=== PATIENT | female | born 1995 | race Caucasian/White ===

== ENCOUNTER → 2022-10-08 | Outpatient (CLI) | payer OTHER, SELFPAY ==
[2022-10-10 21:07] LABS: Chlamydia By Nucleic Acid AMP Negative (Negative)
[2022-10-10 22:59] LABS: Gonococcus By Nucleic Acid AMP Negative (Negative)
== END | disposition home or self-care (01) ==
LOC: LABSPEC 15:49
PROVIDERS: PCP Family Medicine; Referring Provider Obstetrics & Gynecology; Visit Provider Obstetrics & Gynecology
DX: O09.90 Supervision of high risk pregnancy, unspecified, unspecified trimester (principal); Z3A.00 Weeks of gestation of pregnancy not specified
CPT/HCPCS: 87086; 87088; 87491; 87591

== ENCOUNTER → 2022-10-14 | Outpatient (CLI) | payer OTHER, SELFPAY ==
[2022-10-14 12:44] LABS: Absolute Lymphocyte Count 1.54 X10^3/uL (0.83-4.51); Absolute Neutrophil Count 5.4 X10^3/uL (2.0-7.7); Basophil# 0.03 X10^3/uL; Basophil% 0.4 % (0-1); Eosinophil# 0.04 X10^3/uL; Eosinophils% 0.5 % (0-5); Hematocrit 42.5 % (37-47); Hemoglobin 14.4 g/dL (12.0-15.0); Lymphocyte # 1.54 X10^3/ul (0.83-4.51); Lymphocyte % 20.6 % (19-41); Mean Corp Hgb Conc 33.9 g/dL (32-36); Mean Corpuscular Hgb 30.8 pg (27.0-32.0); Mean Corpuscular Volume 90.8 fL (81-99); Mean Platelet Vol. 10.7 fl (6.2-12.0); Monocyte# 0.41 X10^3/uL; Monocyte% 5.5 % (0-10); NRBC Flagged by Analyzer 0 % (0-5); Neutrophil # 5.43 X10^3/uL (2.7-7.7); Neutrophil % 72.6 % (47-70); Platelet Count 238 K/mm3 (150-450); RBC Distribution Width CV 11.8 % (11.6-14.6); Red Blood Count 4.68 M/mm3 (4.2-5.4); White Blood Count 7.5 K/mm3 (4.4-11.0)
[2022-10-14 13:18] LABS: NATERA MAILED SPECIMEN
[2022-10-14 14:04] LABS: HIV - WCH Non-Reactive (Nonreactive); Hepatitis B Surface Antigen Non-Reactive (Nonreactive); Hepatitis C Antibody Non-Reactive (Nonreactive); Rubella IgG Reactive (Nonreactive); Syphilis Antibodies Non-reactive
== END | disposition home or self-care (01) ==
LOC: LABSPEC 12:06
PROVIDERS: PCP Family Medicine; Referring Provider Obstetrics & Gynecology; Visit Provider Obstetrics & Gynecology
DX: Z34.81 Encounter for supervision of other normal pregnancy, first trimester (principal); Z31.430 Encounter of female for testing for genetic disease carrier status for procreative management
CPT/HCPCS: 36415; 85025; 86703; 86762; 86780; 86803; 86850; 86900; 86901; 87340

== ENCOUNTER → 2022-11-19 | Outpatient (CLI) | payer OTHER, SELFPAY | END | disposition home or self-care (01) | PROVIDERS: PCP Family Medicine; Referring Provider Registered Nurse; Visit Provider Registered Nurse | DX: Z36.9 Encounter for antenatal screening, unspecified (principal) | CPT/HCPCS: 36415 ==

== ENCOUNTER → 2023-02-05 | Outpatient (CLI) | payer OTHER, SELFPAY ==
[2023-02-05 10:52] LABS: Absolute Lymphocyte Count 1.75 X10^3/uL (0.83-4.51); Absolute Neutrophil Count 7.7 X10^3/uL (2.0-7.7); Basophil# 0.03 X10^3/uL; Basophil% 0.3 % (0-1); Eosinophil# 0.04 X10^3/uL; Eosinophils% 0.4 % (0-5); Hematocrit 37.1 % (37-47); Hemoglobin 12.5 g/dL (12.0-15.0); Lymphocyte # 1.75 X10^3/ul (0.83-4.51); Lymphocyte % 17.4 % (19-41); Mean Corp Hgb Conc 33.7 g/dL (32-36); Mean Corpuscular Hgb 31.4 pg (27.0-32.0); Mean Corpuscular Volume 93.2 fL (81-99); Mean Platelet Vol. 10.5 fl (6.2-12.0); Monocyte# 0.49 X10^3/uL; Monocyte% 4.9 % (0-10); NRBC Flagged by Analyzer 0 % (0-5); Neutrophil # 7.68 X10^3/uL (2.7-7.7); Neutrophil % 76.3 % (47-70); Platelet Count 188 K/mm3 (150-450); RBC Distribution Width CV 12.7 % (11.6-14.6); RBC Distribution Width SD 43.6 fl (35.1-43.9); Red Blood Count 3.98 M/mm3 (4.2-5.4); White Blood Count 10.1 K/mm3 (4.4-11.0)
[2023-02-05 11:02] LABS: Glucose Challenge Gest 1H 50g 128 mg/dL (70-140)
[2023-02-05 11:33] LABS: HIV - WCH Non-Reactive (Nonreactive); Syphilis Antibodies Non-reactive
== END | disposition home or self-care (01) ==
PROVIDERS: PCP Family Medicine; Referring Provider Advanced Practice Midwife; Visit Provider Advanced Practice Midwife
DX: O26.899 Other specified pregnancy related conditions, unspecified trimester (principal); R30.0 Dysuria; O09.90 Supervision of high risk pregnancy, unspecified, unspecified trimester; Z13.1 Encounter for screening for diabetes mellitus; Z3A.00 Weeks of gestation of pregnancy not specified
CPT/HCPCS: 36415; 82950; 85025; 86703; 86780; 87086

== ENCOUNTER → 2023-04-17 | Outpatient (CLI) | payer OTHER, SELFPAY | END | disposition home or self-care (01) | LOC: LABSPEC 11:18 | PROVIDERS: PCP Family Medicine; Referring Provider Advanced Practice Midwife; Visit Provider Advanced Practice Midwife | DX: Z34.90 Encounter for supervision of normal pregnancy, unspecified, unspecified trimester (principal) | CPT/HCPCS: 87081 ==

== ENCOUNTER 2023-04-30 09:40 | Inpatient (IN) | payer OTHER, SELFPAY ==
[2023-04-30] VITALS (71 sets, daily range): BP systolic 75–141; BP diastolic 43–89; PULSE 67–116; RESP 15; TEMP 36.8–37.7; O2SAT 91–100; BMI 25.3
[2023-04-30] MEDS: Lactated Ringers 1,000 ML 50 ML IV (10:30)
[2023-04-30 10:51] LABS: Absolute Lymphocyte Count 1.97 X10^3/uL (0.83-4.51); Absolute Neutrophil Count 7.4 X10^3/uL (2.0-7.7); Basophil# 0.04 X10^3/uL; Basophil% 0.4 % (0-1); Eosinophil# 0.05 X10^3/uL; Eosinophils% 0.5 % (0-5); Hematocrit 39.3 % (37-47); Lymphocyte # 1.97 X10^3/ul (0.83-4.51); Lymphocyte % 19.4 % (19-41); Mean Corp Hgb Conc 33.1 g/dL (32-36); Mean Corpuscular Hgb 30.6 pg (27.0-32.0); Mean Corpuscular Volume 92.5 fL (81-99); Mean Platelet Vol. 10.9 fl (6.2-12.0); Monocyte% 5.9 % (0-10); NRBC Flagged by Analyzer 0 % (0-5); Neutrophil # 7.39 X10^3/uL (2.7-7.7); Neutrophil % 72.7 % (47-70); Platelet Count 184 K/mm3 (150-450); RBC Distribution Width CV 13.3 % (11.6-14.6); RBC Distribution Width SD 44.8 fl (35.1-43.9); Red Blood Count 4.25 M/mm3 (4.2-5.4); White Blood Count 10.2 K/mm3 (4.4-11.0)
[2023-04-30 11:35] LABS: Syphilis Antibodies Non-reactive
[2023-04-30] MEDS: LACTATED RINGERS 500 ML 999 ML IV ×2 (11:38→12:43)
[2023-04-30] MEDS: fentaNYL-bupivacaine (epidural) 100 ML BAG EPIDURAL ×2 (12:40→16:54)
--- NOTE | 2023-04-30 14:07 | HP.PCM.OB_ITS ---
HPI - General General Date of Admission: 04/30/23 HPI Narrative URIAH NIETO, is a 27 F who presents ial regular ctx no vb lof good fm Maternal Data Information KRISHNA Calculator Estimated Delivery Date Method Current WG Current Estimate 05/11/23 LMP (Certain) 38w 3d PFSH PFSH Medical History (Updated 04/30/23 @ 14:[address] Sarah Martin MD) Anxiety Depression Hand fracture, right Home Medications ondansetron HCl 4 mg tablet 4 mg PO Q6H PRN nausea and vomiting #30 tabs 10/02/22 [Rx Last Taken Unknown] promethazine 12.5 mg tablet 12.5 mg PO Q6H PRN nausea and vomiting #90 tabs 10/25/22 [Rx Last Taken Unknown] Allergy/AdvReac Type Severity Reaction Status Date / Time No Known Allergies Allergy Verified 04/30/23 08:51 Family History Grandmother Breast cancer, Onset Age: 58 Mother , in house fire 2003 No problems noted. Surgical History History of surgery Social History adopted: No household members: spouse housing: house current occupational status: employed current occupation: [employer] current occupational exposures/hazards: No pets and animals: Yes pets and animals: dog(s) and bird(s) history of recent travel: No Smoking Status: Never smoker alcohol intake: never well-balanced diet: daily or most days caffeine: Yes Type: coffee eating out: rarely or never seatbelt use: always do you feel safe at home: Yes additional social history: [facility] History 1 Elective abortions Hx Para 0 Spontaneous abortions Hx # Term Pregnancies Ectopic pregnancies Hx # Pregnancies Multiple births # of living children Visit Details Expected Delivery Route/Plan Labor Preferences- CB/BF classes: discussed labor support person: Neal labor intervention preferences: [] pain management options preferred: epidural cut cord/dad catch: cord : yes PP control planned: condoms discussed possible routes of delivery and associated risks: vs P C/S, pts mother had 3 c/s and is high anxiety about infant weight/size special requests: [] Plans Covid status: unvaccinated Flu vaccine: none Tdap vaccine: declines Rhogam: NA LARC form signed: Yes movement and labor precautions reviewed. Problem list reviewed and updated with the most current plan of care details and appropriate orders placed. Relevant counseling for the gestational age provided. Continue routine care and follow up unless otherwise noted in visit notes/problem list details OB Flowsheet Initial Weight: Not Recorded Date -?-?-?-?-?-?-?-?-?-?-?-?- EGA Weight BP Urine Prot -?-?-?-?-?-?-?-?-?-?-?-?- Glucose FHR FuHt Pres Dilation -?-?-?-?-?-?-?-?-?-?-?-?- Effaced St Visit Note 10/08/22 -?-?-?-?-?-?-?-?-?-?-?-?- 9w 2d 129 lb 132/88 -?-?-?-?-?-?-?-?-?-?-?-?- 180 -?-?-?-?-?-?-?-?-?-?-?-?- JV- single live IUP measuring 9 weeks 1 day and consistent with LMP. Pt desires NIPT. zofran for nausea. 11/04/22 -?-?-?-?-?-?-?-?-?-?-?-?- 13w 1d 134 lb 2 oz 125/87 Nega tive -?-?-?-?-?-?-?-?-?-?-?-?- Negative 164 -?-?-?-?-?-?-?-?-?-?-?-?- LC- no vb/crampi ng. cont with nausea. afp discussed and accepted today. negative carrier and genetic screening. 12/02/22 -?-?-?-?-?-?-?-?-?-?-?-?- 17w 1d 136 lb 4 oz 119/75 Nega tive -?-?-?-?-?-?-?-?-?-?--?-?- Negative 150 -?-?-?-?-?-?-?-?-?-?-?-?- LC-no vb/crampin g.afp negative. anatomy scheduled. 01/01/23 -?-?-?-?-?-?-?-?-?-?-?-?- 21w 3d 140 lb 124/79 Negative -?-?-?-?-?-?-?-?-?-?-?-?- Negative 155 21 -?-?-?-?-?-?-?-?-?-?-?-?- KW- +FM. no vb/l of/ctx. nl anatomy. anticipatory guidance on visits and 28 week labs. CB classes encouraged. had many questions today regarding vs PC/S, high anxiety today. 01/31/23 -?-?-?-?-?-?-?-?-?-?-?-?- 25w 5d 146 lb 4 oz 124/80 Nega tive -?-?-?-?-?-?-?-?-?-?-?-?- Negative 145 25 -?-?-?-?-?-?-?-?-?-?-?-?- KW- +fm. no lof/ vb/ctx. Fresh Test discussed. 28 week labs ordered 02/10/23 -?-?-?-?-?-?-?-?-?-?-?-?- 27w 1d 146 lb 8 oz 122/78 Nega tive -?-?-?-?-?-?-?-?-?-?-?-?- Negative 147 28 -?-?-?-?-?-?-?-?-?-?-?-?- MH-No Vb, LOF. G ood FM. 02/24/23 -?-?-?-?-?-?-?-?-?-?-?-?- 29w 1d 151 lb 8 oz 132/85 Nega tive -?-?-?-?-?-?-?-?-?-?-?-?- Negative 140 29 -?-?-?-?-?-?-?-?-?-?-?-?- LC- no vb/ctx/lo f. good fm.increased d/c. LC- no vb/ctx/lof. good fm.i ncreased d/c, speculum exam erythema. +white curdy d/c. terconazole cream rx sent. LC- no vb/ctx/lof. good fm.i ncreased d/c, speculum exam erythema. +white curdy d/c. yeast infection. terconazole cream rx sent. 03/14/23 -?-?-?-?-?-?-?-?-?-?-?-?- 31w 5d 152 lb 8 oz 124/85 Nega tive -?-?-?-?-?-?-?-?-?-?-?-?- Negative 140 32 -?-?-?-?-?-?-?-?-?-?-?-?- SM- no vb lof go od fm no regular ctx 03/28/23 -?-?-?-?-?-?-?-?-?-?-?-?- 33w 5d 151 lb 133/92 Negative -?-?-?-?-?-?-?-?-?-?-?-?- Negative 155 32 -?-?-?-?-?-?-?-?-?-?-?-?- KW-no vb/lof/reg ular ctx. good fm. no concerns 04/10/23 -?-?-?-?-?-?-?-?-?-?-?-?- 35w 4d 154 lb 8 oz 108/83 -?-?-?-?-?-?-?-?-?-?-?-?- 150 35 -?-?-?-?-?-?-?-?-?-?-?-?- SM- no vb lof go od fm irregular ctx 04/17/23 -?-?-?-?-?-?-?-?-?-?-?-?- 36w 4d 160 lb 108/82 Negative -?-?-?-?-?-?-?-?-?-?-?--?- Negative 135 37 Cephalic 4 -?-?-?-?-?-?-?-?-?-?-?-?- 90 -2 JV- labor precautions discussed. No lof, vaginal bleeding, or dec fn, 04/23/23 -?-?-?-?-?-?-?-?-?-?-?-?- 37w 3d 161 lb 6 oz 124/87 Nega tive -?-?-?-?-?-?-?-?-?-?-?-?- Negative 140 37 Cephalic 5 -?-?-?-?-?-?-?-?-?-?-?-?- 90 -2 Lc- no lof /vb or dec fm. having ctx. potentially early labor. precautions provided. lost mucus plug. gbs neg. 04/30/23 -?-?-?-?-?-?-?-?-?-?-?-?- 38w 3d 162 lb 8 oz 134/76 -?-?-?-?-?-?-?-?-?-?-?-?- 140 38 Cephalic 6 -?-?-?-?-?-?-?-?-?-?-?-?- 80 -1 SM- no vb log good fm no regular ctx SM- increasing ctx over the last week no vb lof admits good fm to l and d for labor admit Notes Visit Date: 12/02/22 Last Updated by: Rhonda Thompson CNM was 11pounds at , she was 6 pounds. NST FHR Rate Baby A Baseline: 140 Variability:: Moderate Accelerations:: 15 x 15 Decelerations:: None NST Reactive:: Yes FHR Category:: Category I Uterine Activity:: q3-5 ROS Constitutional Constitutional: Reports systems reviewed and no addt'l complaints, except as documented ENT HEENT: Reports systems reviewed and no addt'l complaints, except as documented Cardiovascular Cardiovascular: Reports systems reviewed and no addt'l complaints, except as documented Respiratory/Chest Respiratory/Chest: Reports systems reviewed and no addt'l complaints, except as documented Gastrointestinal Gastrointestinal: Reports systems reviewed and no addt'l complaints, except as documented and nausea; Denies abdominal pain Genitourinary Genitourinary: Reports systems reviewed and no addt'l complaints, except as documented, contractions Details: present and frequency (regular ) and movement Details: present Musculoskeletal Musculoskeletal: Reports systems reviewed and no addt'l complaints, except as documented Integumentary Integumentary: Reports as per HPI Neurologic Neurologic: Reports systems reviewed and no addt'l complaints, except as documented Endocrine Endocrinology: Reports systems reviewed and no addt'l complaints, except as documented Vital Signs Vital Signs Vital Signs: 04/30/23 10:01 04/30/23 10:01 04/30/23 10:28 Temperature Temperature Source Pulse Rate 81 Blood Pressure 141/89 H 119/76 BP Systolic 141 119 BP Diastolic 89 76 Pulse Ox 04/30/23 10:28 04/30/23 10:58 04/30/23 10:58 Temperature Temperature Source Temporal Pulse Rate 69 Blood Pressure BP Systolic BP Diastolic Pulse Ox 97 04/30/23 10:58 04/30/23 12:23 04/30/23 12:23 Temperature 99.4 F H Temperature Source Pulse Rate 99 Blood Pressure BP Systolic BP Diastolic Pulse Ox 97 04/30/23 12:25 04/30/23 12:25 04/30/23 12:27 Temperature Temperature Source Pulse Rate 98 Blood Pressure 128/81 H BP Systolic 128 BP Diastolic 81 Pulse Ox 91 04/30/23 12:27 04/30/23 12:28 04/30/23 12:28 Temperature Temperature Source Pulse Rate 97 103 H Blood Pressure BP Systolic BP Diastolic Pulse Ox 94 04/30/23 12:32 04/30/23 12:32 04/30/23 12:33 Temperature Temperature Source Pulse Rate 86 85 Blood Pressure 123/69 H BP Systolic 123 BP Diastolic 69 Pulse Ox 04/30/23 12:33 04/30/23 12:37 04/30/23 12:37 Temperature Temperature Source Pulse Rate 93 Blood Pressure BP Systolic BP Diastolic Pulse Ox 96 93 04/30/23 12:38 04/30/23 12:38 04/30/23 12:38 Temperature Temperature Source Pulse Rate 71 Blood Pressure 98/55 L BP Systolic 98 BP Diastolic 55 Pulse Ox 97 04/30/23 12:42 04/30/23 12:42 04/30/23 12:43 Temperature Temperature Source Pulse Rate 74 89 Blood Pressure 75/43 L BP Systolic 75 BP Diastolic 43 Pulse Ox 04/30/23 12:43 04/30/23 12:45 04/30/23 12:45 Temperature Temperature Source Pulse Rate 80 Blood Pressure 112/59 L BP Systolic 112 BP Diastolic 59 Pulse Ox 96 04/30/23 12:48 04/30/23 12:48 04/30/23 12:48 Temperature Temperature Source Pulse Rate 79 Blood Pressure 83/45 L BP Systolic 83 BP Diastolic 45 Pulse Ox 98 04/30/23 12:53 04/30/23 12:53 04/30/23 13:00 Temperature Temperature Source Pulse Rate 74 Blood Pressure 132/79 H BP Systolic 132 BP Diastolic 79 Pulse Ox 99 04/30/23 13:00 04/30/23 12:59 04/30/23 13:04 Temperature Temperature Source Pulse Rate 68 79 Blood Pressure BP Systolic BP Diastolic Pulse Ox 99 04/30/23 13:04 04/30/23 13:08 04/30/23 13:08 Temperature Temperature Source Pulse Rate 81 Blood Pressure 122/63 H BP Systolic 122 BP Diastolic 63 Pulse Ox 100 04/30/23 13:09 04/30/23 13:09 04/30/23 13:14 Temperature Temperature Source Pulse Rate 80 80 Blood Pressure BP Systolic BP Diastolic Pulse Ox 99 04/30/23 13:14 04/30/23 13:19 04/30/23 13:19 Temperature Temperature Source Pulse Rate 108 H Blood Pressure BP Systolic BP Diastolic Pulse Ox 99 99 04/30/23 13:24 04/30/23 13:24 04/30/23 13:29 Temperature Temperature Source Pulse Rate 108 H 102 H Blood Pressure BP Systolic BP Diastolic Pulse Ox 99 04/30/23 13:29 04/30/23 13:34 04/30/23 13:34 Temperature Temperature Source Pulse Rate 91 Blood Pressure BP Systolic BP Diastolic Pulse Ox 99 98 04/30/23 13:39 04/30/23 13:39 04/30/23 13:39 Temperature Temperature Source Pulse Rate 78 87 Blood Pressure 119/67 BP Systolic 119 BP Diastolic 67 Pulse Ox 04/30/23 13:39 04/30/23 13:44 04/30/23 13:44 Temperature Temperature Source Pulse Rate 74 Blood Pressure BP Systolic BP Diastolic Pulse Ox 97 98 04/30/23 13:46 04/30/23 13:46 04/30/23 13:49 Temperature 98.5 F Temperature Source Temporal Pulse Rate 75 Blood Pressure BP Systolic BP Diastolic Pulse Ox 04/30/23 13:49 04/30/23 13:54 04/30/23 13:54 Temperature Temperature Source Pulse Rate 75 Blood Pressure BP Systolic BP Diastolic Pulse Ox 97 99 04/30/23 13:59 04/30/23 13:59 04/30/23 14:04 Temperature Temperature Source Pulse Rate 81 73 Blood Pressure BP Systolic BP Diastolic Pulse Ox 99 04/30/23 14:04 Temperature Temperature Source Pulse Rate Blood Pressure BP Systolic BP Diastolic Pulse Ox 98 Weight Weight: 162 lb 0.636 oz Body Mass Index (BMI) 25.3 Physical Exam Const alert, oriented x3 and healthy appearing Constitutional Narrative: uncomfortable with contractions HEENT normocephalic and moist oral mucous membranes Head and Scalp: atraumatic Neck full ROM, no lymphadenopathy, supple and thyroid normal General: trachea midline Thyroid: thyroid normal Lymph Lymphatic: no lymphadenopathy noted Chest inspection of chest normal Resp normal respiratory effort Cardio regular rate GI normal to inspection, nondistended, normoactive bowel sounds, soft to palpation and non-tender Inspection: gravid external exam normal Bimanual Exam - Vag & Uterus: uterus non-tender Manual OB Exam: estimated gestational size appropriate, presentation cephalic, dilated, effaced and station Extremity normal to inspection General Extremity: Negative for edema Skin no rashes or lesions noted Neuro deep tendon reflexes 2+ bilaterally Motor Exam: strength 5/5 throughout and clonus absent Psych mental status grossly normal Labs Labs Labs: Blood Type A POSITIVE Antibody Screen NEGATIVE Hct 39.3 % (37-47) Hgb 13.0 g/dL (12.0-15.0) Pap Smear Negative Syphilis Total Ab Non-reactive Rubella IgG Antibody Reactive (Nonreactive) Hep Bs Antigen Non-Reactive (Nonreactive) Chlamydia DNA (ANGELIC) Negative (Negative) Neisseria gonorrhoeae DNA (ANGELIC) Negative (Negative) HIV 1&2 Antibody Non-Reactive (Nonreactive) Glucose 1 Hr 50 gm 128 mg/dL (70-140) Miscellaneous Test Assessment & Plan (1) Supervision of high risk , antepartum: COMMENT: [id number] KRISHNA 05/[birth year] boy (name surprise) Spouse Neal (2) : QUALIFIERS: Weeks of gestation: 38 weeks Qualified Code(s): Z3A.38 - 38 weeks gestation of COMMENT: GBS neg, neg AFP,NIPT low risk, carrier neg 14/14 , nl anatomy, nl GCT (3) Active labor at term: PLAN: Plan admit IAL epidural arom clear fluid
[2023-04-30] MEDS: Lactated Ringers 1,000 ML 200 ML IV (16:42)
[2023-04-30] MEDS: Oxytocin 10 UNITS/ML Vial IM (18:18)
[2023-04-30] MEDS: Oxytocin 15 Units/NS 250ml 15 UNITS/250 ML IV.SOLN 83 UNITS IV (18:20)
--- NOTE | 2023-04-30 18:48 | EX.PCM.OBRPT ---
Assessment & Plan (1) : QUALIFIERS: Weeks of gestation: 38 weeks Qualified Code(s): Z3A.38 - 38 weeks gestation of COMMENT: GBS neg, neg AFP,NIPT low risk, carrier neg , nl anatomy, nl GCT (2) Supervision of high risk , antepartum: COMMENT: [id number] KRISHNA 05/11/23 boy (name surprise) Spouse Neal (3) UTI (urinary tract infection) during : COMMENT: Macrobid 02/05:neg culture (4) Active labor at term: (5) Vaginal delivery: COMMENT: SM IAL 39 boy Carmine Maternal Data Information KRISHNA Calculator Estimated Delivery Date Method Current WG Current Estimate 05/11/23 LMP (Certain) 38w 3d Vaginal Delivery Operative Information Date of Procedure: 04/30/23 Pre-Operative Diagnosis: see a/p diagnoses Post-Operative Diagnosis: same Surgery / Procedure Performed: Spontaneous Vaginal Delivery Type of Anesthesia: Epidural Special Medications: none Estimated Blood Loss: 200 Fluids Replaced: crystalloid Findings Description of Procedure: Patient began pushing and delivered the head in the JAMAR presentation. The head was delivered atraumatically and a loose nuchal cord ?1 was identified and the infant delivered through without complication. The anterior and posterior shoulders delivered without complication followed by the rest of the infant and the was placed on the maternal abdomen. Delayed cord clamping was employed for approximately 60 seconds. Cord was clamped and cut and gentle traction was applied to the cord and the placenta delivered spontaneously immediately following it was noted to be intact with three-vessel cord. The perineum and vagina were inspected and noted to have a second degree perineal laceration which was repaired in the usual fashion with 3-0 vicryl rapide. . EBL was 200 cc. Patient and tolerated delivery well. Amniotic Fluid Description: Clear Placental Delivery Description: Spontaneous Placenta Disposition: [facility] Cord Vessel Description: 3 Vessels Cord Entanglement: None Delayed Cord Clamping: Yes Post Vaginal Delivery Medications Given After Delivery: IV Pitocin Episiotomy Description: None Complication Complications: None Procedures Urinary/Genital [id number]: [id number] Vaginal Delivery [facility]
--- NOTE | 2023-04-30 20:26 | DCINST_ITS ---
Discharge Instructions Diet Discharge Diet: No restrictions Activity Discharge Activity: Return to Normal Activity, May Not Drive (while taking narcotic pain medications.) and May Shower May resume sexual activity in: 4-6 weeks Dressing / Incision Call your doctor if your incision/area has: Continuous Slow Oozing, Sudden Increased Bleeding, Increased Pain/ Swelling, Increased Redness and Foul Smelling Discharge Follow Up Care Please Follow Up With: Sarah Martin MD When: Call [phone] to make an appointment with your doctor in 6 weeks. If you had elevated blood pressure or 4th degree laceration, you will need to be seen in 2 weeks. Test Results: Test results from this visit will be discussed in further detail at your follow- up appointment, if applicable. Discharge Plan Admission Admit Date/Time: 04/30/23 09:40 Attending Provider: Sarah Martin Primary Care Provider: Salinas Price Discharge Orders/Prescriptions Prescriptions: No Action Unisom (doxylamine) 25 mg tablet 25 mg PO QHS PRN (Reason: sleep) vit-iron fum-folic ac 60-0.8 mg tablet 1 tab PO DAILY PRN (Reason: ) Referrals / Follow Up: Salinas Price DO [Primary Care Provider] - Disposition Disposition (needs filled in before D/C Order can be placed): Home, Self Care
[2023-05-01] MEDS: Naproxen 500 MG Tablet PO ×2 (02:51→16:03)
[2023-05-01] MEDS: Benzocaine/Lanolin/Aloe Vera 1 SPRAY EACH TOPICAL (02:51)
[2023-05-01 04:20] VITALS: BP 108/68; PULSE 70; RESP 15; TEMP 36.7; O2SAT 95
[2023-05-01 09:05] VITALS: BP 118/74; PULSE 98; RESP 18; TEMP 36.8; O2SAT 96
--- NOTE | 2023-05-01 11:48 | CASEMGMT ---
Social Work Assessment Labor and Delivery Unit Patient Address:[address] [place] [address] Phone number:[phone] Date of Referral: 05/01/23 Time of Referral:?555 Referred By: Sarah Martin Date of Intervention: ??05/01/23 Time of Intervention:? 944 Reason for Referral:? History of anxiety and depression Sw completed chart review and acknowledges social work consult entered due to maternal history of anxiety and depression. Sw presented to bedside and introduced self to mother of baby (SONALI Tesfaye). Sw explained sw role during hospitalization and completed psychosocial assessment and provided literature and resources for MOB. History obtained from: medical records and mother of baby (SHU)??? Household composition: Currently residing in the home is MOB and father of baby (FOPaul- Neal). MOB states that now baby will live with them. MOB states that their housing is safe and there are no concerns. Patient's parent/guardian status:?MOB states that she and LADY met through her brother and have been together for 7 years. This is first baby for both parents. MOB denies any concerns of domestic violence or intimate partner violence. ? Medical History: ?SHU is 1, para 0- now 1. SHU received routine care with Taylor throughout . SHU delivered baby via vaginal delivery at 38 weeks gestation on 04/30/23. Baby boy, Carmine, was born weighing 7lb and 4oz, and his apgars were 8 and 9 at one and five minutes of life respectfully. Baby will be followed by [facility] bakery and deli sales manager Dr. Barker. SHU states that she is breast feeding and it is going well. Educational Status:? Both parents graduated from high school and have no college education. Financial Status: Both parents are gainfully employed outside of the home. 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 LADY is also employed at [employer] for the road services department and he is able to take off 2-3 weeks now that baby has been born. Supplies:??MOB states that she has everything that she needs for baby including: car seat, safe sleep space, clothes, diapers, wipes and a breast pump. Childcare/Caregiver(s): MOB reports that when both parents are at work her mother in law will be able to watch baby. ? Transportation:??Both parents have their drivers license and reliable transportation. No transportation barriers at this time. Programs/Agencies Involved: ??Family is not connected to any community resources at this time. ? Children Services/Legal Issues:?No history of Children Services involvement. NO issue or concerns warranting a referral at this time. ?? Behavioral Health Issues: ??Mental Health History:??MOB reports that LADY has not been diagnosed with any mental health diagnoses. MOB states that she has been diagnosed with anxiety and depression. MOB states that she is not prescribed any medication and is not in any counseling. SHU was receptive to learning about baby blues and depression/ anxiety and how she may be more susceptible to experiencing one or the other due to her mental health history. MOB stated that LADY is a good support person for her and he will be able to recognize when she is struggling. ? Substance Use History:??MOB denies history of substance use prior to or during . Family History: MOB states that there is no family history of substance use or mental health? Drug Screens: No urine screens observed in chart review. ?? Family/Social Stressors:? MOB denies any family stressors at this time. Support Systems: SHU states that LADY is her biggest support person along with her family and FOB family. Depression/Shaken Baby/Safe Sleeping:? Sw educated MOB on signs and symptoms of baby blues and depression/ anxiety. Sw provided literature for MOB and LADY to read. Sw also provided MOB with list of counseling supports and other [facility] Resources should she struggle and feel the need to get connected to someone. MOB expressed understanding. Sw educated MOB on shaken baby prevention and ABCs of safe sleep. MOB expressed understanding. ASSESSMENT:? SHU is currently admitted to Labor and Delivery following the arrival of her baby boy, Carmine. SHU and FOPaul are and have all necessary baby items for baby. SHU reports that she has a lot of friends and family who are supportive and are involved. MOB understanding of mental health history and how that may affect her journey. MOB made strong eye contact during assessment. MOB very talkative, chatty, engaged and upbeat. MOB holding baby lovingly and attentive during assessment. MOB was welcoming and receptive to sw involvement and support. PLAN:? MOB and baby to be discharged when medically ready. ?No other services requested or indicated. Jamshid Tellez, TOBACCO PRIZER, T[employer] LINE ATTENDANT
[2023-05-01 12:00] VITALS: BP 103/62; PULSE 64; RESP 18; TEMP 36.8; O2SAT 96
--- NOTE | 2023-05-01 13:29 | PCM.PN.OB ---
Subjective Subjective Patient doing well without complaints. Tolerating PO. Ambulating and voiding without difficulty. feeding well. Denies chest pain, shortness of breath, calf pain/swelling, fevers, chills, lightheadedness. Objective Data Objective Data Vital Signs: Vital Signs Temp Pulse Resp BP Pulse Ox O2 Del Method 98.2 F 64 18 103/62 96 Room Air 05/01/23 12:00 05/01/23 12:00 05/01/23 12:00 05/01/23 12:00 05/01/23 12:00 05/01/23 12:00 Oxygen Delivery Method Room Air Weight: 162 lb 0.636 oz Body Mass Index (BMI) 25.3 Intake & Output: Intake and Output for Last 24 Hours 04/29/23 04/30/23 05/01/23 23:59 23:59 23:59 Intake Total 2812.50 / 2812.50 Output Total 1150 / 1150 Balance 1662.50 / 1662.50 Lab / Micro Data 04/30/23 10:30 ROS Constitutional Constitutional: Reports systems reviewed and no addt'l complaints, except as documented Cardiovascular Cardiovascular: Reports systems reviewed and no addt'l complaints, except as documented Respiratory/Chest Respiratory/Chest: Reports systems reviewed and no addt'l complaints, except as documented Gastrointestinal Gastrointestinal: Reports systems reviewed and no addt'l complaints, except as documented Physical Exam Const alert, oriented x3 and no apparent distress HEENT Head and Scalp: atraumatic Resp normal respiratory effort GI soft to palpation and non-tender Bimanual Exam - Vag & Uterus: uterus non-tender Uterus Palpation: uterus fundus firm (below Umbilicus) Assessment & Plan (1) Vaginal delivery: COMMENT: SM IAL 39 boy Lou PLAN: Plan s/p PPD # 1 1. routine post delivery care 2. breast feeding- support given 3. rh positive 4. rubella immune
[2023-05-01 15:39] VITALS: BP 105/69; PULSE 77; RESP 18; TEMP 36.6
[2023-05-01 19:35] VITALS: BP 118/81; PULSE 72; RESP 16; TEMP 36.2; O2SAT 94
[2023-05-02] MEDS: Naproxen 500 MG Tablet PO ×2 (00:11→08:12)
[2023-05-02 01:23] VITALS: BP 101/57; PULSE 68; RESP 16; TEMP 36.1
[2023-05-02 07:30] VITALS: BP 109/64; PULSE 75; RESP 16; TEMP 36.6; O2SAT 98
[2023-05-02] MEDS: Acetaminophen 500 MG Tablet 1000 MG PO ×2 (07:43→13:38)
--- NOTE | 2023-05-02 09:33 | PCM.PN.OB ---
Subjective Subjective Patient doing well without complaints. Tolerating PO. Ambulating and voiding without difficulty. Feeding difficulties, latching overall well, but having some pain with latch. Denies chest pain, shortness of breath, calf pain/swelling, fevers, chills, lightheadedness. Objective Data Objective Data Vital Signs: Vital Signs Temp Pulse Resp BP Pulse Ox O2 Del Method 97.8 F 75 16 109/64 98 Room Air 05/02/23 07:30 05/02/23 07:30 05/02/23 07:30 05/02/23 07:30 05/02/23 07:30 05/02/23 07:30 Oxygen Delivery Method Room Air Weight: 162 lb 0.636 oz Body Mass Index (BMI) 25.3 Intake & Output: Intake and Output for Last 24 Hours 04/30/23 05/01/23 05/02/23 23:59 23:59 23:59 Intake Total 2812.50 / 2812.50 Output Total 1150 / 1150 Balance 1662.50 / 1662.50 Lab / Micro Data 04/30/23 10:30 Physical Exam Const alert and no apparent distress Chest Nipple/Areola: nipples/areola normal Resp normal respiratory effort GI GI Narrative: fundus below u, normal lochia Extremity normal to inspection and no calf tenderness Skin no rashes or lesions noted Assessment & Plan (1) Vaginal delivery: COMMENT: SM IAL 39 boy Lou PLAN: Plan s/p PPD # 1 1. routine post delivery care 2. breast feeding- support given, in to see pt prior to d/c 3. rh positive 4. rubella immune 5. d/c home today if comfortable with plan
--- NOTE | 2023-05-02 11:29 | NURSING ---
At 1125, student nurse reassessed patients pain level. Patient rated pain in perineal area a 4/10.
[2023-05-02 13:41] VITALS: BP 103/62; PULSE 65; RESP 16; TEMP 36.5; O2SAT 97
--- NOTE | 2023-05-02 14:47 | NURSING ---
reviewed and agree with student charting. Devang AGUILLON [employer] instructor
== END 2023-05-02 14:50 | disposition home or self-care (01) | DRG 807 ==
PROVIDERS: Admitting Provider Obstetrics & Gynecology; PCP Family Medicine; Visit Provider Obstetrics & Gynecology
DX: O69.81X0 Labor and delivery complicated by cord around neck, without compression, not applicable or unspecified (principal); Z37.0 Single live birth; O70.1 Second degree perineal laceration during delivery; Z3A.38 38 weeks gestation of pregnancy
CPT/HCPCS: 59025; 59050; 85025; 86780; 86850; 86900; 86901; 99221; J7120; G0378

== ENCOUNTER → 2023-09-18 | Outpatient (CLI) | payer OTHER, SELFPAY | END | disposition home or self-care (01) | LOC: LABSPEC 10:54 | PROVIDERS: PCP Family Medicine; Referring Provider Advanced Practice Midwife; Visit Provider Advanced Practice Midwife | DX: N76.0 Acute vaginitis (principal) | CPT/HCPCS: 87070; 87205 ==